=== PATIENT | male | born 1945 | race Caucasian/White ===

== ENCOUNTER 2020-10-23 10:22 | Outpatient (CLI) | payer MEDICARE, BC ==
[~2020-10-23] VITALS: Ht 182.9 cm; Wt 106.0 kg
[~2020-10-23 10:22] MED LIST changes: -HYGROTON 2525 MG/TAB PO; -NORVASC 10MG10 MG PO
[2020-10-23] MEDS ORDERED: HYGROTON 2525 MG/TAB PO (10:55)
[2020-10-23] MEDS ORDERED: NORVASC 10MG10 MG PO (10:55)
[2020-10-23 10:57] VITALS: BP 159/88; PULSE 57; TEMP 97.9
== END 2020-10-23 12:00 | disposition home or self-care (01) ==
LOC: COL.CAR 10:22
DX: S22.000A Wedge compression fracture of unspecified thoracic vertebra, initial encounter for closed fracture (principal); S22.42XD Multiple fractures of ribs, left side, subsequent encounter for fracture with routine healing; V89.2XXD Person injured in unspecified motor-vehicle accident, traffic, subsequent encounter; Y92.410 Unspecified street and highway as the place of occurrence of the external cause; Z53.8 Procedure and treatment not carried out for other reasons

== ENCOUNTER → 2020-10-23 | Outpatient (CLI) | payer MEDICARE, BC ==
[~2020-10-23] MED LIST: ASPIRIN 81M81 MG/TA2 PO; CARAFATE 1GM1 G PO; CENTRUM SILVER1 CTB PO; COENZYME Q-10200 MG PO; Cleocin PO; HCTZ 25MG TAB25 MG PO; HYGROTON 2525 MG/TAB PO; MASON NATURAL500 MG PO; NORVASC 10MG10 MG PO; OSTEO-BI-FLEX 21 TAB PO; PERCOCET 325 MG1 TA2 PO; PRAVACHOL 40MG40 MG PO; PROTONIX 40MG T40 MG PO; SYNTHROID0.05 MG/TA PO; TOPROL XL 25MG25 MG PO; TYLENOL ARTHRI650 M1 PO; TYLENOL PM EXTR1 TA1 PO
== END ==
LOC: COL.CAR 10-12 10:30
DX: S22.020A Wedge compression fracture of second thoracic vertebra, initial encounter for closed fracture (principal); U07.1 COVID-19; Z53.8 Procedure and treatment not carried out for other reasons